=== PATIENT | female | born 1940 | race Caucasian/White ===

== ENCOUNTER 2021-05-16 06:58 | Emergency (ER) | payer MEDICARE, MEDICAID ==
[~2021-05-16] VITALS: Ht 162.6 cm; Wt 57.4 kg
[2021-05-16] MEDS ORDERED: CHILDREN'S ASPI81 MG PO (07:02)
[2021-05-16] MEDS ORDERED: COQ-10100 MG PO (07:02)
[2021-05-16] MEDS ORDERED: REMERON15 M1 PO (07:03)
[2021-05-16] MEDS ORDERED: LEVOTHYROXINE25 MC1 PO (07:03)
[2021-05-16] MEDS ORDERED: METFORMIN HCL500 M3 PO (07:03)
[2021-05-16] MEDS ORDERED: TYLENOL325 MG PO (07:03)
[2021-05-16 09:14] LABS: ABSOLUTE BASOPHILS 0.1 thou/uL (0.0-0.2); ABSOLUTE EOSINOPHILS 0.2 thou/uL (0.0-0.7); ABSOLUTE LYMPHOCYTES 1.5 thou/uL (0.8-5.3); ABSOLUTE MONOCYTES 0.6 thou/uL (0.0-1.2); ABSOLUTE NEUTROPHILS 6.1 thou/uL (1.6-8.1); BASOPHILS 0.6 %; EOSINOPHILS 2.3 %; HEMATOCRIT 34.2 % (37.0-47.0); HEMOGLOBIN 11.2 gm/dL (12.0-15.0); LYMPHOCYTES 18.2 %; MCH 28.3 pg (26.0-34.0); MCHC 32.7 g/dL (28.0-37.0); MCV 86.5 fL (80.0-100.0); MONOCYTES 7.5 %; MPV 7.6 fl. (7.2-11.1); NUCLEATED RBCS 0 /100WBC; PLATELET COUNT* 250 thou/uL (150-400); POLYS 71.4 %; RBC 3.95 mil/uL (4.20-5.00); RDW-CV 15.7 % (10.5-14.5); WBC 8.5 thou/uL (4.0-11.0)
[2021-05-16 09:28] LABS: CREATININE 1.1 mg/dL (0.6-1.3); POTASSIUM 4.6 mmol/L (3.5-5.1)
[2021-05-16 09:40] LABS: ALBUMIN 3.3 g/dL (3.4-5.0); TOTAL BILIRUBIN 0.4 mg/dL (<0.1-1.0); TOTAL PROTEIN 7.3 g/dL (6.4-8.2)
[2021-05-16 10:00] VITALS: BP 129/49
--- NOTE | 2021-05-16 10:10 | EKG ---
[place] [address] ELECTROCARDIOGRAM REPORT Name: ZANDRA CORTEZ Room: [facility]#: [id number] Admission: 05/16/21 Attend Phys: Discharge: 05/16/21 Date of : 44 Date of Service: 05/16/21727 Report #: [id number] THIS REPORT FOR: //name// [facility] ED Test Date: 2021-05-16 Test Time: 07:28:41 Pat Name: ZANDRA CORTEZ Department: Room: Gender: F [employer]ile Process Coordinator: DANIELA : 1940 Requested By: Zhao Mota Order Number: [id number] MD: Matthew Godinez Measurements Intervals [place] Rate: 79 P: 75 SD: 152 QRS: 83 QRSD: 112 T: 66 QT: 397 QTc: 456 Interpretive Statements Sinus rhythm Incomplete right bundle branch block Compared to ECG 05/01/2007 23:44:52 No significant changes Electronically Signed On 05-16-2021 10:10:33 CLINICAL LAB ASSISTANT by Matthew Godinez [email or web address] <ELECTRONICALLY SIGNED> By: Matthew Godinez MD, [facility] 05/16/21 1010 [id number] Matthew Godinez MD, [facility] /EPI
== END 2021-05-16 10:00 | disposition home or self-care (01) ==
LOC: M.ERS 06:58
PROVIDERS: Family Medicine
DX: S42.201A Unspecified fracture of upper end of right humerus, initial encounter for closed fracture (principal); F03.90 Unspecified dementia, unspecified severity, without behavioral disturbance, psychotic disturbance, mood disturbance, and anxiety; E11.9 Type 2 diabetes mellitus without complications; F31.9 Bipolar disorder, unspecified; K21.9 Gastro-esophageal reflux disease without esophagitis; E03.9 Hypothyroidism, unspecified; Z79.82 Long term (current) use of aspirin; Z79.899 Other long term (current) drug therapy; Z88.6 Allergy status to analgesic agent; Z88.8 Allergy status to other drugs, medicaments and biological substances; Z88.2 Allergy status to sulfonamides; W18.39XA Other fall on same level, initial encounter; Y93.89 Activity, other specified; Y92.128 Other place in nursing home as the place of occurrence of the external cause; Y99.8 Other external cause status